=== PATIENT | female | born 1955 | race Caucasian/White ===

== ENCOUNTER 2016-08-25 21:12 | Emergency (ER) | payer MEDICARE ==
--- NOTE | ~2016-08-25 | ER ---
PATIENT'S NAME: MISHA TAYLOR [facility] AGE: 61 Y [address] ROOM: [place] [address] LOCATION: [facility] ADMIT DATE: 08/25/2016 ER/Outpatient Report DISCHARGE DATE: 08/25/2016 FAMILY PHYSICIAN: Leandro Wade MD ATTENDING PHYSICIAN: Anatoly Malcolm Time of Arrival: 2 hours. Time of Evaluation: 5 hours. CHIEF COMPLAINT: Rash on anus, pain. HISTORY OF PRESENT ILLNESS: This is a 61-year-old female, who presents to the ER, who states that she has been having pain around her anus for approximately 3 months. She states it has gotten worse over that timeframe. She states that she has issues with constipation, and she states she does have to strain a lot for her bowel movements. She is not for sure if she has any hemorrhoids or not, but when she does have a hard stool, she will notice some bloody drainage. She states that she has noticed some anal drainage in the last few months as well, and she feels like that has gotten worse. She has also noticed a rash to her left groin area as well. She has not seen her primary care physician for this. She denies being sexually active. She has had a hysterectomy. She denies any other problems at this time. ALLERGIES: NO KNOWN ALLERGIES. MEDICATIONS: Please see medication list in nurse's notes. PAST MEDICAL HISTORY: 1. Insulin-dependent diabetic. 2. Hypercholesterolemia. 3. Joint inflammation. PAST SURGICAL HISTORY: Bladder surgery, right shoulder surgery, right hand surgery, hysterectomy. SOCIAL HISTORY: Denies smoking, drug, or alcohol use. REVIEW OF SYSTEMS: All systems were reviewed and were negative with the exception of those discussed in the HPI. PATIENT'S NAME: MISHA TAYLOR [facility] AGE: 61 Y [address] ROOM: [place] [address] LOCATION: ED ADMIT DATE: 08/25/2016 ER/Outpatient Report DISCHARGE DATE: 08/25/2016 FAMILY PHYSICIAN: Leandro Wade MD ATTENDING PHYSICIAN: Anatoly Malcolm PHYSICAL EXAMINATION: VITAL SIGNS: Height 5 feet 6 inches stated, weight 97.6 kg taken, blood pressure is 181/97, pulse 86, respirations 16, temperature 97.9 degrees tympanically, and saturations 96% on room air. Karol Coma Score is 15. GENERAL: An alert, calm, well-developed female, in no acute distress. : Exam was done. She does have erythema approximately 5 cm in diameter area around her anus, that is erythematic and excoriated. She does have one small little lesion noted to that area and anal fissure as well. She also in her left groin area has fissure lines noted to her skin as well. There is some slight erythema to that area. No external hemorrhoids are noted. No bleeding. No other lesions are noted. EXTREMITIES: No clubbing or cyanosis. She does have full range of motion of all limbs. LABORATORY DATA AND X-RAYS: None were done. IMPRESSION: Candidal rash to anus and left groin area. ASSESSMENT AND PLAN: I did give the patient reassurance. I will dismiss her to home with some nystatin ointment to use as directed. I advised her to keep the area clean and dry, and to put a barrier type fabric between her skin folds to prevent them touching each other to help with healing. She needs to monitor her symptoms closely. If she does not improve, I would like her to follow up with her primary care physician. The patient understands and agrees with care. EBER BARTHOLOMEW PA-C FOR MD LUZ ELENA MEANS/tito /[id number] d: t: 08/29/16 1039, OUTPATIENT REPORT
[~2016-08-25 21:12] MED LIST: HUMALOG100 UNIT/3 SUB-Q; LEVEMIR FL100 UNIT/1 SUB-Q; NORCO 5-325 MG1 TAB PO; WELLBUTRIN XL300 M1 PO
== END 2016-08-25 21:49 | disposition disaster alternative care site (69) ==
LOC: GMED 21:12
DX: B37.89 Other sites of candidiasis (principal); E11.9 Type 2 diabetes mellitus without complications; E78.00 Pure hypercholesterolemia, unspecified; Z90.710 Acquired absence of both cervix and uterus; Z98.890 Other specified postprocedural states; Z79.899 Other long term (current) drug therapy